=== PATIENT | male | born 1955 | race Caucasian/White ===

== ENCOUNTER → 2023-05-18 07:08 | Outpatient (REF) | payer OTHER, SELFPAY | LOC: RAD 07:08 | PROVIDERS: ATTENDING PHYSICIAN Nuclear Medicine Nuclear Cardiology; FAMILY PHYSICIAN Internal Medicine | DX: E11.9 Type 2 diabetes mellitus without complications (principal); I10 Essential (primary) hypertension; H34.9 Unspecified retinal vascular occlusion | CPT/HCPCS: 93880 ==

== ENCOUNTER → 2023-06-08 08:55 | Outpatient (REF) | payer OTHER, SELFPAY | LOC: RCS 08:55 | PROVIDERS: ATTENDING PHYSICIAN Nuclear Medicine Nuclear Cardiology; FAMILY PHYSICIAN Internal Medicine | DX: I10 Essential (primary) hypertension (principal); R06.02 Shortness of breath | CPT/HCPCS: 93017; 93350; Q9957 ==

== ENCOUNTER → 2023-06-22 13:42 | Outpatient (REF) | payer OTHER, SELFPAY | LOC: DHCBS MAIN 13:42 | PROVIDERS: ATTENDING PHYSICIAN Nuclear Medicine Nuclear Cardiology; FAMILY PHYSICIAN Internal Medicine | DX: H34.9 Unspecified retinal vascular occlusion (principal); I10 Essential (primary) hypertension | CPT/HCPCS: 93306 ==

== ENCOUNTER 2024-06-03 06:25 | Day surgery (SDC) | payer OTHER, SELFPAY ==
[2024-06-03 07:03] LABS: Glucose - Point of Care 132 mg/dl (70-99)
== END 2024-06-03 08:37 | disposition home or self-care (01) ==
LOC: GI 06:25
PROVIDERS: ATTENDING PHYSICIAN Student in an Organized Health Care Education/Training Program
DX: Z12.11 Encounter for screening for malignant neoplasm of colon (principal); D12.4 Benign neoplasm of descending colon; K57.30 Diverticulosis of large intestine without perforation or abscess without bleeding; K64.0 First degree hemorrhoids; Z86.0100 Personal history of colon polyps, unspecified; Z80.0 Family history of malignant neoplasm of digestive organs
CPT/HCPCS: 45385; 88305; 82962

== ENCOUNTER 2024-08-12 06:20 | Day surgery (SDC) | payer OTHER, SELFPAY ==
[2024-08-12 08:28] LABS: Glucose - Point of Care 139 mg/dl (70-99)
== END 2024-08-12 10:42 | disposition home or self-care (01) ==
LOC: GI 06:20
PROVIDERS: ATTENDING PHYSICIAN Student in an Organized Health Care Education/Training Program
DX: Z12.11 Encounter for screening for malignant neoplasm of colon (principal); K57.30 Diverticulosis of large intestine without perforation or abscess without bleeding; K52.89 Other specified noninfective gastroenteritis and colitis; K63.5 Polyp of colon; D12.3 Benign neoplasm of transverse colon; Z98.890 Other specified postprocedural states; Z86.0101 Personal history of adenomatous and serrated colon polyps
CPT/HCPCS: 45380; 88305; 82962